=== PATIENT | female | born 1970 | race Caucasian/White ===

== ENCOUNTER → 2017-04-30 | Outpatient (CLI) | payer OTHER ==
[~2017-04-30] MED LIST: ACEBUTCAFT PO; ACEDIPPM; ALBU.083IS IH; ALBU3IS INH; ALBU8HFA2 INH; ALBU90OI; ALBU90OI INH; ALPR.5 PO; AMIT10 PO; AMIT25 PO; AMOX500 PO; ASPI325 PO; AZIT250 PO; Advair Hfa 230-12 GM INH; Amitriptyline150 MG; BACL10 PO; BENZ100A PO; BRINTELLIX20 MG PO; BUPR100; BUSP10 PO; BUTASPCAFT PO; CALMAGZIN PO; CEPH500 PO; CHLO10 PO; CHLO25A PO; CHLO50; CHOL10002 PO; CLOMIPRAMINE PO; CLON.2 PO; CLON1; CLON1 PO; CLON2 PO; CYCL10 PO; Capsaicin60 GM TOP; Cyclobenzaprine5 MG; DEPAKO; DESV50 PO; DIAZ10 PO; DIAZ2 PO; DIPH50 PO; DIVA250EC; DIVA500EC; DOXY100 PO; Desyrel150 MG PO; Duoneb 2.5-0.5 M3 ML INH; EPIN.3I IM; EPIPEN 2-P0.3 MG/0.3 IM; ESCI10 PO; Esgic Tablet1 EACH PO; FISH1000 PO; FLUC100 PO; FLUV50 PO; Flexeril5 MG PO; GABA300 PO; GABA600 PO; GUAPHELA PO; HYDACE25S PR; HYDACE5; HYDACE5 PO; HYDPAM25; HYDPAM50 PO; IBUP600 PO; IBUP800 PO; INSDET100 SC; INSULANPEN SC; KETO10 PO; LAMO25 PO; LATUDA40 MG PO; LATUDA80 MG PO; LEVSOD50 PO; LIDO700A20 TOP; LITH300C PO; LORA.5; LORA1 PO; LORA2 PO; LORAZEPAM; LOSA25 PO; LOSA50 PO; LOSARTAN; LOSARTAN POTASS25 MG PO; LOXA5; Lopressor 50 mg50 MG PO; MECL12.5 PO; METF500 PO; METF500C PO; METO10 PO; METO25 PO; METO25ER PO; METO50 PO; METO50ER PO; METPHE10 PO; METPHE20 PO; MONT10T PO; NAPR500 PO; NEBI10 PO; NEBI5 PO; NITR100CA PO; Naprosyn500 MG PO; OLAN10 PO; OLAN5 PO; OMEP20ER PO; OMEP40CA12 PO; ONDA4ODT MM; ONDA4ODT PO; OXYACE5T PO; Omeprazole20 M1 PO; PENVK500 PO; POTCHL10ER; PRAM.5 PO; PRAMIPEXOLE D0.75 MG PO; PRAZ2 PO; PRAZ5 PO; PRED20 PO; PREG50 PO; PROC10 PO; PROCODE120 PO; PROM25 PO; Percocet 5-3251 EACH PO; Prednisone20 MG PO; QUET200 PO; QUET25 PO; QUET300; QUET300 PO; QUETIAPINE FUM200 M1; RANI150; REXULTI4 MG; RISP.5 PO; RIZATRIPTAN10 M1 PO; ROXICODONE5 MG PO; RXLORA1 PO; RXPENVK250 PO; RXPROACE PO; SERT100; SERT25; SERT50 PO; SIMV10 PO; SIMV5 PO; ST. JOHN'S WORT; SUCR1 PO; SUMA25; SUMA25 PO; SUMA6I SC; Seroquel200 MG PO; TOPI100 PO; TOPI50 PO; TRAM50 PO; TRAZ100; TRAZ50 PO; Toviaz8 MG PO; ZOLP10 PO; ZOLP12.5 PO; Zithromax250 MG PO; Zofran Odt4 MG PO; [UNRECOGNIZED DRUG - OTHER]; [UNRECOGNIZED DRUG - OTHER]
[2017-04-30 14:28] LABS: Influenza A Negative (NEGATIVE); Influenza B Negative (NEGATIVE)
== END ==
LOC: LAB SHORT 13:30
PROVIDERS: Nurse Practitioner Primary Care
DX: J06.9 Acute upper respiratory infection, unspecified (principal)
CPT/HCPCS: 87804

== ENCOUNTER → 2017-05-30 | Outpatient (CLI) | payer OTHER | END | disposition home or self-care (01) | LOC: LAB 10:50 | DX: R30.0 Dysuria (principal) | CPT/HCPCS: 87077; 87086; 87186 ==

== ENCOUNTER 2017-06-05 12:45 | Emergency (ER) | payer OTHER ==
[~2017-06-05] VITALS: Ht 160 cm; Wt 117.9 kg
[~2017-06-05 12:45] MED LIST changes: -Amitriptyline150 MG; -EPIPEN 2-P0.3 MG/0.3 IM; -Flexeril5 MG PO; -LIDO700A20 TOP; -ONDA4ODT MM; -QUETIAPINE FUM200 M1; -REXULTI4 MG
[2017-06-05] MEDS ORDERED: Cyclobenzaprine5 MG (13:10)
[2017-06-05] MEDS ORDERED: Amitriptyline150 MG (13:10)
[2017-06-05] MEDS ORDERED: REXULTI4 MG (13:10)
[2017-06-05] MEDS ORDERED: QUETIAPINE FUM200 M1 (13:10)
[2017-06-05 14:34] LABS: BASOPHILS ABSOLUTE AUTO 0.06 K/mm3 (0.00-0.23); BASOPHILS PERCENT AUTO 1 % (0-2); EOSINOPHILS ABSOLUTE AUTO 0.17 K/mm3 (0.00-0.68); EOSINOPHILS PERCENT AUTO 2 % (0-6); Hematocrit 36.6 % (33.0-51.0); Hemoglobin 11.4 g/dL (11.5-16.0); IMMATURE GRAN ABSOLUTE AUTO 0.02 K/mm3 (0.00-0.10); IMMATURE GRAN PERCENT AUTO 0 % (0-1); LYMPHOCYTES ABSOLUTE AUTO 1.94 K/mm3 (0.84-5.20); LYMPHOCYTES PERCENT AUTO 28 % (21-46); MONOCYTES PERCENT AUTO 4 % (4-13); Mean Corpuscular HGB 27.2 pg (26.0-34.0); Mean Corpuscular HGB Conc 31.1 g/dL (31.5-36.5); Mean Corpuscular Volume 87 fL (80-100); Mean Platelet Volume 11.5 fL (9.1-12.4); NEUTROPHILS ABSOLUTE AUTO 4.57 K/mm3 (1.96-9.15); NEUTROPHILS PERCENT AUTO 65 % (41-73); Platelet Count 120 K/mm3 (150-400); RDW Coefficient Variation 13.9 % (11.7-14.2); RDW Standard Deviation 44.6 fL (35.1-46.3); Red Blood Cell Count 4.19 M/mm3 (3.80-5.20); White Blood Cell Count 7.06 K/mm3 (4.00-11.30)
[2017-06-05 14:53] LABS: Alanine Aminotransfer (ALT/SGP 55 U/L (12-78); Albumin, Blood 3.3 g/dL (3.4-5.0); Albumin/Globulin Ratio 0.7 (0.8-1.8); Alk Phos 71 U/L (50-136); Anion Gap 10 mmol/L (6-16); Aspartate Aminotrans (AST/SGOT 33 U/L (12-37); Bilirubin, Total 0.1 mg/dL (0.1-1.0); Blood Urea Nitrogen 12 mg/dL (8-24); Bun/Creatinine Ratio 18.3 (12.0-20.0); CO2, Blood 21 mmol/L (21-32); Calcium, Blood 8.6 mg/dL (8.5-10.1); Chloride, Blood 111 mmol/L (98-108); Creatinine, Blood 0.66 mg/dL (0.40-1.00); Globulin, Blood 4.7 g/dL (2.2-4.0); Glomerular Filtration Rate >60 (60-); Glucose, Blood 138 mg/dL (70-99); Potassium, Blood 3.8 mmol/L (3.5-5.5); Sodium, Blood 142 mmol/L (136-145)
[2017-06-05] MEDS ORDERED: CYCL10 PO (15:59)
== END 2017-06-05 16:22 | disposition home or self-care (01) ==
LOC: ER 12:45
PROVIDERS: Nurse Practitioner Family
DX: M54.5 Low back pain (principal); Z88.2 Allergy status to sulfonamides; Z91.013 Allergy to seafood; Z91.041 Radiographic dye allergy status; Z79.899 Other long term (current) drug therapy; Z79.84 Long term (current) use of oral hypoglycemic drugs; I10 Essential (primary) hypertension; E03.9 Hypothyroidism, unspecified; E11.9 Type 2 diabetes mellitus without complications; F25.9 Schizoaffective disorder, unspecified; F31.9 Bipolar disorder, unspecified; J45.909 Unspecified asthma, uncomplicated; E78.5 Hyperlipidemia, unspecified; F43.10 Post-traumatic stress disorder, unspecified; G43.909 Migraine, unspecified, not intractable, without status migrainosus; Z87.891 Personal history of nicotine dependence
CPT/HCPCS: 36415; 70450; 80053; 81000; 85025; 96372; 99284; J1885

== ENCOUNTER 2017-06-20 22:15 | Emergency (ER) | payer OTHER ==
[~2017-06-20] VITALS: Ht 160 cm; Wt 117.9 kg
[~2017-06-20 22:15] MED LIST changes: +Amitriptyline150 MG; +QUETIAPINE FUM200 M1; +REXULTI4 MG
[2017-06-20] MEDS ORDERED: Prednisone20 MG PO (23:55)
[2017-06-20] MEDS ORDERED: NAPR500 PO (23:55)
[2017-06-20] MEDS ORDERED: LIDO700A20 TOP (23:55)
== END 2017-06-21 00:12 | disposition home or self-care (01) ==
LOC: ER 22:15
DX: M79.7 Fibromyalgia (principal); M25.512 Pain in left shoulder; I10 Essential (primary) hypertension; J45.909 Unspecified asthma, uncomplicated; G43.909 Migraine, unspecified, not intractable, without status migrainosus; E78.5 Hyperlipidemia, unspecified; F31.9 Bipolar disorder, unspecified; Z87.891 Personal history of nicotine dependence; Z88.2 Allergy status to sulfonamides; Z91.041 Radiographic dye allergy status; Z91.013 Allergy to seafood; Z79.84 Long term (current) use of oral hypoglycemic drugs; Z79.51 Long term (current) use of inhaled steroids; Z79.52 Long term (current) use of systemic steroids
CPT/HCPCS: 73030; 96372; 99284; J1885

== ENCOUNTER 2017-10-06 09:50 | Emergency (ER) | payer OTHER ==
[~2017-10-06] VITALS: Ht 160 cm; Wt 108.9 kg
[~2017-10-06 09:50] MED LIST changes: +LIDO700A20 TOP
[2017-10-06 10:31] LABS: Source, Urine Clean Catch
[2017-10-06 10:52] LABS: Bilirubin, Urine Neg (Neg); Blood, Urine 5+ (Neg); Glucose Qualitative, Urine Neg (Neg); Ketones, Urine Neg (Neg); Leukocyte Esterase, Urine 1+ (Neg); Nitrite, Urine Neg (Neg); Protein, Urine 1+ (Neg); Specific Gravity, Urine 1.015 (1.003-1.022); Urobilinogen, Urine NORM (Normal)
[2017-10-06 11:14] LABS: Appearance, Urine Clear (Clear); Color, Urine Amber (P-Yellow)
[2017-10-06 11:18] LABS: Bacteria Mod /hpf; Red Blood Cells, Urine TNTC /hpf (0-2); Squamous Epithelial Cells Mod /hpf (Few)
[2017-10-06 11:35] LABS: BASOPHILS ABSOLUTE AUTO 0.04 K/mm3 (0.00-0.23); BASOPHILS PERCENT AUTO 1 % (0-2); EOSINOPHILS ABSOLUTE AUTO 0.14 K/mm3 (0.00-0.68); EOSINOPHILS PERCENT AUTO 2 % (0-6); Hematocrit 37.1 % (33.0-51.0); Hemoglobin 11.8 g/dL (11.5-16.0); IMMATURE GRAN ABSOLUTE AUTO 0.02 K/mm3 (0.00-0.10); IMMATURE GRAN PERCENT AUTO 0 % (0-1); LYMPHOCYTES ABSOLUTE AUTO 2.06 K/mm3 (0.84-5.20); LYMPHOCYTES PERCENT AUTO 35 % (21-46); MONOCYTES ABSOLUTE AUTO 0.25 K/mm3 (0.16-1.47); MONOCYTES PERCENT AUTO 4 % (4-13); Mean Corpuscular HGB 27.2 pg (26.0-34.0); Mean Corpuscular HGB Conc 31.8 g/dL (31.5-36.5); Mean Corpuscular Volume 86 fL (80-100); Mean Platelet Volume 12.2 fL (9.1-12.4); NEUTROPHILS ABSOLUTE AUTO 3.32 K/mm3 (1.96-9.15); NEUTROPHILS PERCENT AUTO 57 % (41-73); Platelet Count 126 K/mm3 (150-400); RDW Standard Deviation 43.7 fL (35.1-46.3); Red Blood Cell Count 4.34 M/mm3 (3.80-5.20); White Blood Cell Count 5.83 K/mm3 (4.00-11.30)
[2017-10-06] MEDS ORDERED: Flexeril5 MG PO (11:44)
[2017-10-06] MEDS ORDERED: ZOLP10 PO (11:45)
[2017-10-06 11:46] LABS: Alanine Aminotransfer (ALT/SGP 60 U/L (12-78); Albumin, Blood 3.6 g/dL (3.4-5.0); Albumin/Globulin Ratio 0.8 (0.8-1.8); Alk Phos 73 U/L (50-136); Anion Gap 7 mmol/L (6-16); Aspartate Aminotrans (AST/SGOT 44 U/L (12-37); Bilirubin, Total 0.3 mg/dL (0.1-1.0); Blood Urea Nitrogen 13 mg/dL (8-24); CO2, Blood 25 mmol/L (21-32); Calcium, Blood 8.4 mg/dL (8.5-10.1); Chloride, Blood 109 mmol/L (98-108); Creatinine, Blood 0.87 mg/dL (0.40-1.00); Globulin, Blood 4.3 g/dL (2.2-4.0); Glomerular Filtration Rate >60 (60-); Glucose, Blood 161 mg/dL (70-99); Sodium, Blood 141 mmol/L (136-145); Total Protein, Blood 7.9 g/dL (6.4-8.2)
[2017-10-06] MEDS ORDERED: ALPR.5 PO (11:46)
[2017-10-06] MEDS ORDERED: PRAZ5 PO (11:46)
[2017-10-06] MEDS ORDERED: EPIPEN 2-P0.3 MG/0.3 IM (11:47)
[2017-10-06] MEDS ORDERED: Percocet 5-3251 EACH PO (13:21)
[2017-10-06] MEDS ORDERED: ONDA4ODT MM (13:21)
== END 2017-10-06 14:28 | disposition home or self-care (01) ==
LOC: ER 09:50
PROVIDERS: Emergency Medicine; Psychiatry & Neurology Psychiatry
DX: N13.2 Hydronephrosis with renal and ureteral calculous obstruction (principal); F31.9 Bipolar disorder, unspecified; I10 Essential (primary) hypertension; Z91.041 Radiographic dye allergy status; Z88.2 Allergy status to sulfonamides; Z91.013 Allergy to seafood; Z79.899 Other long term (current) drug therapy; Z79.84 Long term (current) use of oral hypoglycemic drugs
CPT/HCPCS: 36415; 74176; 80053; 81001; 81025; 85025; 87086; 96361; 96374; 96375; 99284-25; J1885; J2001; J2405; J7030

== ENCOUNTER 2018-03-31 14:35 | Emergency (ER) | payer BC, OTHER ==
[~2018-03-31] VITALS: Ht 160 cm; Wt 117.9 kg
[~2018-03-31 14:35] MED LIST changes: +EPIPEN 2-P0.3 MG/0.3 IM; +Flexeril5 MG PO; +ONDA4ODT MM
[2018-03-31 15:33] LABS: BASOPHILS ABSOLUTE AUTO 0.02 K/mm3 (0.00-0.23); BASOPHILS PERCENT AUTO 0 % (0-2); EOSINOPHILS ABSOLUTE AUTO 0.09 K/mm3 (0.00-0.68); EOSINOPHILS PERCENT AUTO 2 % (0-6); Hematocrit 36.3 % (33.0-51.0); Hemoglobin 11.4 g/dL (11.5-16.0); IMMATURE GRAN ABSOLUTE AUTO 0.01 K/mm3 (0.00-0.10); IMMATURE GRAN PERCENT AUTO 0 % (0-1); LYMPHOCYTES ABSOLUTE AUTO 1.22 K/mm3 (0.84-5.20); LYMPHOCYTES PERCENT AUTO 24 % (21-46); MONOCYTES ABSOLUTE AUTO 0.22 K/mm3 (0.16-1.47); MONOCYTES PERCENT AUTO 4 % (4-13); Mean Corpuscular HGB 27.5 pg (26.0-34.0); Mean Corpuscular HGB Conc 31.4 g/dL (31.5-36.5); Mean Corpuscular Volume 88 fL (80-100); Mean Platelet Volume 12.2 fL (9.1-12.4); NEUTROPHILS ABSOLUTE AUTO 3.48 K/mm3 (1.96-9.15); NEUTROPHILS PERCENT AUTO 69 % (41-73); Platelet Count 93 K/mm3 (150-400); RDW Coefficient Variation 14.1 % (11.7-14.2); RDW Standard Deviation 45.3 fL (35.1-46.3); Red Blood Cell Count 4.15 M/mm3 (3.80-5.20); White Blood Cell Count 5.04 K/mm3 (4.00-11.30)
[2018-03-31 15:55] LABS: Alanine Aminotransfer (ALT/SGP 84 U/L (12-78); Albumin, Blood 3.6 g/dL (3.4-5.0); Albumin/Globulin Ratio 0.8 (0.8-1.8); Alk Phos 95 U/L (50-136); Anion Gap 8 mmol/L (6-16); Aspartate Aminotrans (AST/SGOT 71 U/L (12-37); Bilirubin, Total 0.3 mg/dL (0.1-1.0); Blood Urea Nitrogen 8 mg/dL (8-24); Bun/Creatinine Ratio 11.7 (12.0-20.0); CO2, Blood 24 mmol/L (21-32); Calcium, Blood 8.9 mg/dL (8.5-10.1); Chloride, Blood 102 mmol/L (98-108); Creatinine, Blood 0.68 mg/dL (0.40-1.00); Globulin, Blood 4.5 g/dL (2.2-4.0); Glomerular Filtration Rate >60 (60-); Glucose, Blood 443 mg/dL (70-99); Potassium, Blood 4.2 mmol/L (3.5-5.5); Sodium, Blood 134 mmol/L (136-145); Total Protein, Blood 8.1 g/dL (6.4-8.2)
[2018-03-31] MEDS ORDERED: DESV50 PO (16:07)
[2018-03-31] MEDS ORDERED: Amitriptyline150 MG PO (16:07)
[2018-03-31] MEDS ORDERED: CHLO100 PO (16:07)
== END 2018-03-31 19:41 | disposition home or self-care (01) ==
LOC: ER 14:35
PROVIDERS: Emergency Medicine
DX: E11.65 Type 2 diabetes mellitus with hyperglycemia (principal); F31.9 Bipolar disorder, unspecified; I10 Essential (primary) hypertension; J45.909 Unspecified asthma, uncomplicated; F43.10 Post-traumatic stress disorder, unspecified; G43.909 Migraine, unspecified, not intractable, without status migrainosus; E78.5 Hyperlipidemia, unspecified; Z79.899 Other long term (current) drug therapy
CPT/HCPCS: 36415; 80053; 82947; 83036; 85025; 93005; 93010; 96360; 96361; 99285-25; J1815; J7030

== ENCOUNTER 2018-04-23 11:24 | Emergency (ER) | payer OTHER ==
[~2018-04-23] VITALS: Ht 160 cm; Wt 122.5 kg
[~2018-04-23 11:24] MED LIST changes: +Amitriptyline150 MG PO; +CHLO100 PO
[2018-04-23 12:40] LABS: BASOPHILS ABSOLUTE AUTO 0.04 K/mm3 (0.00-0.23); BASOPHILS PERCENT AUTO 1 % (0-2); EOSINOPHILS ABSOLUTE AUTO 0.09 K/mm3 (0.00-0.68); EOSINOPHILS PERCENT AUTO 2 % (0-6); Hemoglobin 11.8 g/dL (11.5-16.0); IMMATURE GRAN ABSOLUTE AUTO 0.01 K/mm3 (0.00-0.10); IMMATURE GRAN PERCENT AUTO 0 % (0-1); LYMPHOCYTES ABSOLUTE AUTO 1.38 K/mm3 (0.84-5.20); LYMPHOCYTES PERCENT AUTO 26 % (21-46); MONOCYTES ABSOLUTE AUTO 0.29 K/mm3 (0.16-1.47); MONOCYTES PERCENT AUTO 6 % (4-13); Mean Corpuscular HGB 27.7 pg (26.0-34.0); Mean Corpuscular HGB Conc 31.9 g/dL (31.5-36.5); Mean Corpuscular Volume 87 fL (80-100); Mean Platelet Volume 12.7 fL (9.1-12.4); NEUTROPHILS ABSOLUTE AUTO 3.47 K/mm3 (1.96-9.15); NEUTROPHILS PERCENT AUTO 66 % (41-73); Platelet Count 109 K/mm3 (150-400); RDW Standard Deviation 44.7 fL (35.1-46.3); Red Blood Cell Count 4.26 M/mm3 (3.80-5.20); White Blood Cell Count 5.28 K/mm3 (4.00-11.30)
[2018-04-23 12:50] LABS: Alanine Aminotransfer (ALT/SGP 81 U/L (12-78); Albumin, Blood 3.7 g/dL (3.4-5.0); Albumin/Globulin Ratio 0.8 (0.8-1.8); Alk Phos 90 U/L (50-136); Anion Gap 8 mmol/L (6-16); Aspartate Aminotrans (AST/SGOT 76 U/L (12-37); Bilirubin, Total 0.3 mg/dL (0.1-1.0); Blood Urea Nitrogen 12 mg/dL (8-24); Bun/Creatinine Ratio 21.4 (12.0-20.0); CO2, Blood 26 mmol/L (21-32); Calcium, Blood 8.5 mg/dL (8.5-10.1); Chloride, Blood 101 mmol/L (98-108); Creatinine, Blood 0.56 mg/dL (0.40-1.00); Globulin, Blood 4.6 g/dL (2.2-4.0); Glomerular Filtration Rate >60 (60-); Glucose, Blood 325 mg/dL (70-99); Potassium, Blood 4.4 mmol/L (3.5-5.5); Sodium, Blood 135 mmol/L (136-145); Total Protein, Blood 8.3 g/dL (6.4-8.2)
[2018-04-23 13:24] LABS: Source, Urine Catheter
[2018-04-23 13:43] LABS: Bilirubin, Urine Neg (Neg); Blood, Urine Neg (Neg); Glucose Qualitative, Urine 4+ (Neg); Ketones, Urine 1+ (Neg); Leukocyte Esterase, Urine Neg (Neg); Nitrite, Urine Neg (Neg); Protein, Urine 1+ (Neg); Specific Gravity, Urine 1.015 (1.003-1.022); Urobilinogen, Urine NORM (Normal)
[2018-04-23 14:03] LABS: Appearance, Urine Clear (Clear); Color, Urine Yellow (P-Yellow)
[2018-04-23] MEDS ORDERED: BASAGLAR K100 UNIT/1 SC (14:13)
== END 2018-04-23 16:30 | disposition home or self-care (01) ==
LOC: ER 11:24
PROVIDERS: Physician Assistant
DX: R20.2 Paresthesia of skin (principal); R51 Headache; R42 Dizziness and giddiness; R73.9 Hyperglycemia, unspecified; Z91.041 Radiographic dye allergy status; Z88.2 Allergy status to sulfonamides; Z91.013 Allergy to seafood; Z79.899 Other long term (current) drug therapy; Z79.84 Long term (current) use of oral hypoglycemic drugs; F25.9 Schizoaffective disorder, unspecified; I10 Essential (primary) hypertension; J45.909 Unspecified asthma, uncomplicated; F43.10 Post-traumatic stress disorder, unspecified; E78.5 Hyperlipidemia, unspecified; Z87.891 Personal history of nicotine dependence
CPT/HCPCS: 36415; 70450; 80053; 82947; 85025; 96361; 96374; 96375; 99284-25; J1885; J2550; J7030

== ENCOUNTER 2018-07-25 19:06 | Emergency (ER) | payer OTHER ==
[~2018-07-25] VITALS: Ht 160 cm; Wt 120.2 kg
[~2018-07-25 19:06] MED LIST changes: +BASAGLAR K100 UNIT/1 SC
[2018-07-25 20:06] LABS: BASOPHILS ABSOLUTE AUTO 0.04 K/mm3 (0.00-0.23); BASOPHILS PERCENT AUTO 1 % (0-2); EOSINOPHILS ABSOLUTE AUTO 0.15 K/mm3 (0.00-0.68); EOSINOPHILS PERCENT AUTO 2 % (0-6); Hemoglobin 10.8 g/dL (11.5-16.0); IMMATURE GRAN ABSOLUTE AUTO 0.01 K/mm3 (0.00-0.10); IMMATURE GRAN PERCENT AUTO 0 % (0-1); LYMPHOCYTES ABSOLUTE AUTO 1.66 K/mm3 (0.84-5.20); LYMPHOCYTES PERCENT AUTO 24 % (21-46); MONOCYTES ABSOLUTE AUTO 0.35 K/mm3 (0.16-1.47); MONOCYTES PERCENT AUTO 5 % (4-13); Mean Corpuscular HGB 27.2 pg (26.0-34.0); Mean Corpuscular HGB Conc 30.9 g/dL (31.5-36.5); Mean Corpuscular Volume 88 fL (80-100); Mean Platelet Volume 11.6 fL (9.1-12.4); NEUTROPHILS ABSOLUTE AUTO 4.64 K/mm3 (1.96-9.15); NEUTROPHILS PERCENT AUTO 68 % (41-73); Platelet Count 135 K/mm3 (150-400); RDW Coefficient Variation 14.4 % (11.7-14.2); RDW Standard Deviation 46.5 fL (35.1-46.3); Red Blood Cell Count 3.97 M/mm3 (3.80-5.20); White Blood Cell Count 6.85 K/mm3 (4.00-11.30)
[2018-07-25 20:12] LABS: Source, Urine Clean Catch
[2018-07-25 20:21] LABS: Alanine Aminotransfer (ALT/SGP 79 U/L (12-78); Albumin, Blood 3.4 g/dL (3.4-5.0); Albumin/Globulin Ratio 0.8 (0.8-1.8); Alk Phos 77 U/L (50-136); Anion Gap 9 mmol/L (6-16); Aspartate Aminotrans (AST/SGOT 68 U/L (12-37); Bilirubin, Total 0.3 mg/dL (0.1-1.0); Blood Urea Nitrogen 10 mg/dL (8-24); Bun/Creatinine Ratio 15.2 (12.0-20.0); CO2, Blood 24 mmol/L (21-32); Calcium, Blood 8.9 mg/dL (8.5-10.1); Chloride, Blood 109 mmol/L (98-108); Creatinine, Blood 0.66 mg/dL (0.40-1.00); Globulin, Blood 4.4 g/dL (2.2-4.0); Glomerular Filtration Rate >60 (60-); Glucose, Blood 184 mg/dL (70-99); Magnesium, Blood 1.7 mg/dL (1.6-2.4); Potassium, Blood 3.5 mmol/L (3.5-5.5); Sodium, Blood 142 mmol/L (136-145); Total Protein, Blood 7.8 g/dL (6.4-8.2)
[2018-07-25 20:23] LABS: Bilirubin, Urine Neg (Neg); Blood, Urine 1+ (Neg); Glucose Qualitative, Urine Neg (Neg); Ketones, Urine Neg (Neg); Leukocyte Esterase, Urine 1+ (Neg); Nitrite, Urine Neg (Neg); Protein, Urine 1+ (Neg); Specific Gravity, Urine 1.025 (1.003-1.022); Urobilinogen, Urine NORM (Normal)
[2018-07-25 20:30] LABS: Appearance, Urine Clear (Clear); Color, Urine Yellow (P-Yellow)
[2018-07-25 20:31] LABS: Red Blood Cells, Urine 0-2 /hpf (0-2)
[2018-07-25 20:32] LABS: Bacteria Few /hpf; Squamous Epithelial Cells Few /hpf (Few)
[2018-07-25] MEDS ORDERED: CEPH500 PO (20:38)
== END 2018-07-25 20:55 | disposition home or self-care (01) ==
LOC: ER 19:06
PROVIDERS: Emergency Medicine
DX: N39.0 Urinary tract infection, site not specified (principal); R04.2 Hemoptysis; R74.0 Nonspecific elevation of levels of transaminase and lactic acid dehydrogenase [LDH]; F31.9 Bipolar disorder, unspecified; I10 Essential (primary) hypertension; J45.909 Unspecified asthma, uncomplicated; F43.10 Post-traumatic stress disorder, unspecified; E78.5 Hyperlipidemia, unspecified; G43.909 Migraine, unspecified, not intractable, without status migrainosus; F17.290 Nicotine dependence, other tobacco product, uncomplicated; Z79.899 Other long term (current) drug therapy; Z79.4 Long term (current) use of insulin
CPT/HCPCS: 36415; 71046; 80053; 81001; 83735; 85025; 87077; 87086; 93005; 93010; 96360; 99284-25; J7030

== ENCOUNTER → 2019-04-14 | Outpatient (CLI) | payer OTHER ==
[2019-04-16 15:07] LABS: HPV 16 Negative (Negative); HPV 18 Negative (Negative); HPV OTHER HR TYPES Negative (Negative)
== END ==
LOC: LAB 18:42 → LAB SHORT 18:42
PROVIDERS: Registered Nurse Community Health
DX: Z12.4 Encounter for screening for malignant neoplasm of cervix (principal)
CPT/HCPCS: 87624; G0123

== ENCOUNTER 2019-12-27 21:13 | Emergency (ER) | payer OTHER ==
[~2019-12-27] VITALS: Ht 160 cm; Wt 116.3 kg
[~2019-12-27 21:13] MED LIST changes: +BUPROPION XL150 M1 PO; +Bentyl20 MG; +DIAZEPAM10 MG PO; +EUTHYROX75 MC1 PO; +Lithium Carbon450 MG PO; +Macrobid 100 M100 MG PO; +Mirapex0.75 MG PO
[2019-12-27 22:31] LABS: BASOPHILS ABSOLUTE AUTO 0.01 K/mm3 (0.00-0.23); BASOPHILS PERCENT AUTO 0 % (0-2); EOSINOPHILS PERCENT AUTO 0 % (0-6); Hematocrit 37.9 % (33.0-51.0); Hemoglobin 11.7 g/dL (11.5-16.0); IMMATURE GRAN ABSOLUTE AUTO 0.02 K/mm3 (0.00-0.10); IMMATURE GRAN PERCENT AUTO 0 % (0-1); LYMPHOCYTES ABSOLUTE AUTO 2.47 K/mm3 (0.84-5.20); LYMPHOCYTES PERCENT AUTO 29 % (21-46); MONOCYTES ABSOLUTE AUTO 0.32 K/mm3 (0.16-1.47); MONOCYTES PERCENT AUTO 4 % (4-13); Mean Corpuscular HGB 28.4 pg (26.0-34.0); Mean Corpuscular HGB Conc 30.9 g/dL (31.5-36.5); Mean Corpuscular Volume 92 fL (80-100); Mean Platelet Volume 11.6 fL (9.1-12.4); NEUTROPHILS PERCENT AUTO 67 % (41-73); Platelet Count 157 K/mm3 (150-400); RDW Coefficient Variation 14.4 % (11.7-14.2); RDW Standard Deviation 48.7 fL (35.1-46.3); Red Blood Cell Count 4.12 M/mm3 (3.80-5.20); White Blood Cell Count 8.52 K/mm3 (4.00-11.30)
[2019-12-27 22:52] LABS: Alanine Aminotransfer (ALT/SGP 29 U/L (12-78); Albumin, Blood 3.7 g/dL (3.4-5.0); Albumin/Globulin Ratio 0.8 (0.8-1.8); Alk Phos 70 U/L (50-136); Anion Gap 6 mmol/L (6-16); Aspartate Aminotrans (AST/SGOT 23 U/L (12-37); Bilirubin, Total 0.4 mg/dL (0.1-1.0); Blood Urea Nitrogen 9 mg/dL (8-24); Bun/Creatinine Ratio 11.8 (12.0-20.0); CO2, Blood 24 mmol/L (21-32); Calcium, Blood 10.1 mg/dL (8.5-10.1); Chloride, Blood 114 mmol/L (98-108); Creatinine, Blood 0.76 mg/dL (0.40-1.00); Globulin, Blood 4.4 g/dL (2.2-4.0); Glomerular Filtration Rate >60 (60-); Glucose, Blood 102 mg/dL (70-99); Potassium, Blood 3.7 mmol/L (3.5-5.5); Sodium, Blood 144 mmol/L (136-145); Total Protein, Blood 8.1 g/dL (6.4-8.2); Troponin I <0.015 ng/mL (0.000-0.040)
[2019-12-27] MEDS ORDERED: ONDA4ODT MM (23:00)
[2020-01-01] MEDS ORDERED: GABA600 PO (10:49)
[2020-01-01] MEDS ORDERED: OMEP20ER PO (10:49)
[2020-01-01] MEDS ORDERED: ALBU8HFA2 INH (10:49)
[2020-01-01] MEDS ORDERED: CYCLOBENZAPRINE5 MG PO (11:26)
[2020-01-01] MEDS ORDERED: MINIPRESS5 MG PO (11:26)
[2020-01-01] MEDS ORDERED: TOPI50 PO (11:27)
[2020-01-01] MEDS ORDERED: ALPR.5 PO (11:27)
[2020-01-01] MEDS ORDERED: ESGIC 50-325-41 EACH PO (11:27)
[2020-01-01] MEDS ORDERED: SUMA6I SC (11:28)
[2020-01-01] MEDS ORDERED: ZOLP10 PO (11:28)
[2020-01-01] MEDS ORDERED: METF500 PO (11:29)
[2020-01-01] MEDS ORDERED: BASAGLAR K100 UNIT/5 SQ (11:29)
[2020-01-01] MEDS ORDERED: EUTHYROX75 MC1 PO (11:30)
[2020-01-01] MEDS ORDERED: BUPR150ER PO (11:30)
[2020-01-01] MEDS ORDERED: Lithium Carbon450 MG PO (11:30)
[2020-01-01] MEDS ORDERED: Bentyl20 MG PO (11:30)
[2020-01-01] MEDS ORDERED: Mirapex0.75 MG PO (11:31)
[2020-01-01] MEDS ORDERED: CHLO100 PO (11:31)
[2020-01-01] MEDS ORDERED: DESV50 PO (11:32)
[2020-01-01] MEDS ORDERED: DIAZ5 PO (11:32)
[2020-01-01] MEDS ORDERED: METO5A PO (11:32)
== END 2019-12-27 23:21 | disposition home or self-care (01) ==
LOC: ER 21:13
PROVIDERS: Physician Assistant
DX: R10.13 Epigastric pain (principal); G89.29 Other chronic pain; I48.91 Unspecified atrial fibrillation; F25.9 Schizoaffective disorder, unspecified; F31.9 Bipolar disorder, unspecified; I10 Essential (primary) hypertension; E78.5 Hyperlipidemia, unspecified; Z87.891 Personal history of nicotine dependence; Z88.2 Allergy status to sulfonamides; Z91.013 Allergy to seafood; Z79.899 Other long term (current) drug therapy; Z79.4 Long term (current) use of insulin
CPT/HCPCS: 36415; 74018; 80053; 83690; 84484; 85025; 99284-25

== ENCOUNTER 2020-01-09 13:05 | Inpatient (IN) | payer OTHER ==
[~2020-01-09] VITALS: Ht 165.1 cm; Wt 113.6 kg
[~2020-01-09 13:05] MED LIST changes: +BUPR150ER PO; +Bentyl20 MG PO; +CYCLOBENZAPRINE5 MG PO; +DIAZ5 PO; +ESGIC 50-325-41 EACH PO; +EUTHYROX100 MC1 PO; +METO5A PO; +MINIPRESS5 MG PO
[2020-01-09 13:52] LABS: BASOPHILS PERCENT AUTO 0 % (0-2); EOSINOPHILS PERCENT AUTO 0 % (0-6); Hematocrit 35.9 % (33.0-51.0); IMMATURE GRAN ABSOLUTE AUTO 0.01 K/mm3 (0.00-0.10); IMMATURE GRAN PERCENT AUTO 0 % (0-1); LYMPHOCYTES ABSOLUTE AUTO 1.43 K/mm3 (0.84-5.20); LYMPHOCYTES PERCENT AUTO 16 % (21-46); MONOCYTES ABSOLUTE AUTO 0.53 K/mm3 (0.16-1.47); MONOCYTES PERCENT AUTO 6 % (4-13); Mean Corpuscular HGB 28.7 pg (26.0-34.0); Mean Corpuscular HGB Conc 30.6 g/dL (31.5-36.5); Mean Corpuscular Volume 94 fL (80-100); Mean Platelet Volume 12.2 fL (9.1-12.4); NEUTROPHILS PERCENT AUTO 78 % (41-73); Platelet Count 143 K/mm3 (150-400); RDW Coefficient Variation 14.1 % (11.7-14.2); RDW Standard Deviation 48.7 fL (35.1-46.3); Red Blood Cell Count 3.83 M/mm3 (3.80-5.20); White Blood Cell Count 8.97 K/mm3 (4.00-11.30)
[2020-01-09 14:01] LABS: Source, Urine Catheter
[2020-01-09 14:06] LABS: Alanine Aminotransfer (ALT/SGP 32 U/L (12-78); Albumin, Blood 3.7 g/dL (3.4-5.0); Albumin/Globulin Ratio 0.9 (0.8-1.8); Alk Phos 80 U/L (50-136); Anion Gap 7 mmol/L (6-16); Aspartate Aminotrans (AST/SGOT 42 U/L (12-37); Bilirubin, Total 0.5 mg/dL (0.1-1.0); Blood Urea Nitrogen 17 mg/dL (8-24); Bun/Creatinine Ratio 13.1 (12.0-20.0); CO2, Blood 26 mmol/L (21-32); Chloride, Blood 112 mmol/L (98-108); Ethanol (Alcohol), Blood, Med <3 mg/dL; Globulin, Blood 4.3 g/dL (2.2-4.0); Glomerular Filtration Rate 47 (60-); Glucose, Blood 95 mg/dL (70-99); Potassium, Blood 3.6 mmol/L (3.5-5.5); Sodium, Blood 145 mmol/L (136-145)
[2020-01-09 14:07] LABS: Blood, Urine 2+ (Neg); Glucose Qualitative, Urine Neg (Neg); Ketones, Urine 1+ (Neg); Leukocyte Esterase, Urine 3+ (Neg); Nitrite, Urine Pos (Neg); Protein, Urine 3+ (Neg); Specific Gravity, Urine 1.025 (1.003-1.022); Urobilinogen, Urine 1+ (Normal)
[2020-01-09 14:15] LABS: Appearance, Urine Turbid (Clear); Bilirubin, Urine 3+ (Neg); Color, Urine Amber (P-Yellow)
[2020-01-09 14:18] LABS: Bacteria Many /hpf; Squamous Epithelial Cells Rare /hpf (Few); White Blood Cells, Urine TNTC /hpf (0-5)
[2020-01-09 14:20] LABS: U Amphetamine Screen Not Detected; U Barbituate Screen DETECTED; U Benzodiazapine Screen DETECTED; U Buprenorphine Screen Not Detected; U Cannabinoids Screen Not Detected; U Cocaine Screen Not Detected; U Methadone Screen Not Detected; U Methamphetamine Screen Not Detected; U Opiates Screen Not Detected; U Oxycodone Screen Not Detected; U Phencyclidine Screen Not Detected; U Propoxyphene Screen Not Detected
[2020-01-09 16:58] LABS: Lithium 1.87 mmol/L (0.60-1.20)
[2020-01-09] MEDS ORDERED: METF500C PO (17:58)
--- NOTE | 2020-01-09 21:31 | NUR ---
PATIENT IS A NEW ADMIT FROM THE ED. TWO ASSIST TRANSFER FROM [facility] TO BED. UNSTEADY GAIT AT THIS TIME. AXOX 3, FORGETFUL AT TIMES. NS INFUSING AT 100 mL/HR FROM ED. REPORTS CHRONIC BACK PAIN. ON ROOM AIR. TELEMETRY PLACED AND TECH REPORTS NSR 92. DENIES SOB AND N/V. PATIENT ORIENTED TO ROOM AND CALL LIGHT SYSTEM. ABLE TO HAVE BM AFTER ADMIT. BED ALARM ACTIVATED TRYING TO GET UP ON OWN. PATIENT BACK IN BED AND CALL LIGHT IN REACH. TV ON PER PATIENT REQUEST.
--- NOTE | 2020-01-09 23:14 | NUR ---
RESTING IN BED. FLU VACCINE ADMINISTERED. NS INFUSING AT 100 mL/HR, ONE OF TWO BAGS. VOIDING 900 mL SO FAR, USING BSC ONE ASSIST.
--- NOTE | 2020-01-10 04:15 | NUR ---
SHIFT SUMMARY PATIENT HAD NO ACUTE CHANGES OBSERVED. AXOX 3 AND FORGET AT TIMES TO USE CALL LIGHT. ONE ASSIST TO BSC WITH UNSTEADY GAIT. VOIDING T/O SHIFT AND BM. PIV REMAINS INTACT. NS INFUSING AT 100 mL/HR 2 OF 2 BAGS. DENIES SOB AND N/V. VSS/AFEBRILE. PATIENT HAD MINIMAL SLEEP AND REPORTS SHE IS USUALLY UP AT NIGHT WITH HER PETS. REPORTS CHRONIC BACK PAIN WITH MOVEMENT. NPO. CALL LIGHT IN REACH. BED IN LOWEST POSITION AND BED ALARM ACTIVATED. WILL CONTINUE TO MONITOR UNTIL DAY SHIFT NURSE ASSUMES CARE.
[2020-01-10 05:22] LABS: BASOPHILS PERCENT AUTO 0 % (0-2); EOSINOPHILS PERCENT AUTO 0 % (0-6); Hematocrit 32.6 % (33.0-51.0); Hemoglobin 9.8 g/dL (11.5-16.0); IMMATURE GRAN ABSOLUTE AUTO 0.02 K/mm3 (0.00-0.10); IMMATURE GRAN PERCENT AUTO 0 % (0-1); LYMPHOCYTES ABSOLUTE AUTO 2.29 K/mm3 (0.84-5.20); LYMPHOCYTES PERCENT AUTO 31 % (21-46); MONOCYTES PERCENT AUTO 7 % (4-13); Mean Corpuscular HGB 28.2 pg (26.0-34.0); Mean Corpuscular HGB Conc 30.1 g/dL (31.5-36.5); Mean Corpuscular Volume 94 fL (80-100); Mean Platelet Volume 12.1 fL (9.1-12.4); NEUTROPHILS ABSOLUTE AUTO 4.71 K/mm3 (1.96-9.15); NEUTROPHILS PERCENT AUTO 63 % (41-73); Platelet Count 127 K/mm3 (150-400); RDW Coefficient Variation 14.2 % (11.7-14.2); RDW Standard Deviation 49.1 fL (35.1-46.3); Red Blood Cell Count 3.48 M/mm3 (3.80-5.20); White Blood Cell Count 7.52 K/mm3 (4.00-11.30)
[2020-01-10 05:47] LABS: Anion Gap 7 mmol/L (6-16); Blood Urea Nitrogen 10 mg/dL (8-24); Bun/Creatinine Ratio 11.9 (12.0-20.0); CO2, Blood 24 mmol/L (21-32); Calcium, Blood 9.2 mg/dL (8.5-10.1); Chloride, Blood 112 mmol/L (98-108); Creatinine, Blood 0.84 mg/dL (0.40-1.00); Glomerular Filtration Rate >60 (60-); Glucose, Blood 102 mg/dL (70-99); Magnesium, Blood 2.3 mg/dL (1.6-2.4); Potassium, Blood 3.1 mmol/L (3.5-5.5); Sodium, Blood 143 mmol/L (136-145)
[2020-01-10 05:58] LABS: Lithium 1.18 mmol/L (0.60-1.20)
--- NOTE | 2020-01-11 03:50 | NUR ---
SHIFT SUMMARY PATIENT HAD NO ACUTE CHANGES OBSERVED. SLEEPING BUT AROUSABLE AT SHIFT CHANGE. AXOX 3 AND FORGETFUL AT TIMES. SBA TO BSC WITH UNSTEADY GAIT. PIV REMAINS INTACT. LEARNING AND DEVELOPMENT ASSISTANT REPORTS NSR77. CBG 96. DENIES PAIN, SOB, AND N/V. SLEEPING THIS SHIFT VS WIDE AWAKE LAST NOC SHIFT. VSS/AFEBRILE. CALL LIGHT IN REACH. BED IN LOWEST POSITION AND ALARM ACTIVATED. WILL CONTINUE TO MONITOR UNTIL DAY SHIFT NURSE ASSUMES CARE.
[2020-01-11 05:05] LABS: BASOPHILS ABSOLUTE AUTO 0.01 K/mm3 (0.00-0.23); BASOPHILS PERCENT AUTO 0 % (0-2); EOSINOPHILS PERCENT AUTO 0 % (0-6); Hematocrit 33.9 % (33.0-51.0); Hemoglobin 10.4 g/dL (11.5-16.0); IMMATURE GRAN ABSOLUTE AUTO 0.02 K/mm3 (0.00-0.10); IMMATURE GRAN PERCENT AUTO 0 % (0-1); LYMPHOCYTES ABSOLUTE AUTO 2.64 K/mm3 (0.84-5.20); LYMPHOCYTES PERCENT AUTO 36 % (21-46); MONOCYTES ABSOLUTE AUTO 0.38 K/mm3 (0.16-1.47); MONOCYTES PERCENT AUTO 5 % (4-13); Mean Corpuscular HGB 28.7 pg (26.0-34.0); Mean Corpuscular HGB Conc 30.7 g/dL (31.5-36.5); Mean Corpuscular Volume 94 fL (80-100); Mean Platelet Volume 11.8 fL (9.1-12.4); NEUTROPHILS ABSOLUTE AUTO 4.33 K/mm3 (1.96-9.15); NEUTROPHILS PERCENT AUTO 59 % (41-73); Platelet Count 148 K/mm3 (150-400); RDW Coefficient Variation 14.1 % (11.7-14.2); RDW Standard Deviation 48.5 fL (35.1-46.3); Red Blood Cell Count 3.62 M/mm3 (3.80-5.20); White Blood Cell Count 7.38 K/mm3 (4.00-11.30)
[2020-01-11 05:37] LABS: Anion Gap 9 mmol/L (6-16); Blood Urea Nitrogen 4 mg/dL (8-24); Bun/Creatinine Ratio 5.1 (12.0-20.0); CO2, Blood 21 mmol/L (21-32); Calcium, Blood 9.2 mg/dL (8.5-10.1); Chloride, Blood 114 mmol/L (98-108); Creatinine, Blood 0.79 mg/dL (0.40-1.00); Glomerular Filtration Rate >60 (60-); Glucose, Blood 144 mg/dL (70-99); Potassium, Blood 3.3 mmol/L (3.5-5.5); Sodium, Blood 144 mmol/L (136-145)
--- NOTE | 2020-01-11 16:15 | NUR ---
PT IS A/OX3, COOPERATIVE, SLOW TO RESPOND VERBALY, THE PT REPORTED JUST BEFORE LUNCH TODAY THAT SHE FELT SHE WAS HAVING TROUBLE GETTINGS WORDS OUT, FELT HER SPEECH WAS GARBELED, THE PT DID APPEAR MORE SLEEPY AT THIS TIME COMPARED TO THIS AM, THE PTS BS WAS CHECKED AND WAS AT 75, PT WAS ENCOURAGED TO EAT LUNCH AND FELT BETTER SHORTLY AFTER, PT SEEMED TO BE MORE AWAKE THE DAY HAS PROGRESSED, PT APPEARS TO BE BREATHING EASILY ON RA, PT DENIES ANY PAIN, THE PT IS UP IND TO THE BATHROOM AT THIS TIME, CALL LIGHT IN REACH, WILL CONTINUE TO MONITOR FOR CHANGES
[2020-01-12 04:35] LABS: Hematocrit 33.6 % (33.0-51.0); Hemoglobin 10.1 g/dL (11.5-16.0); Mean Corpuscular HGB 28.1 pg (26.0-34.0); Mean Corpuscular HGB Conc 30.1 g/dL (31.5-36.5); Mean Corpuscular Volume 94 fL (80-100); Mean Platelet Volume 11.9 fL (9.1-12.4); Platelet Count 159 K/mm3 (150-400); RDW Standard Deviation 48.4 fL (35.1-46.3); Red Blood Cell Count 3.59 M/mm3 (3.80-5.20); White Blood Cell Count 6.34 K/mm3 (4.00-11.30)
[2020-01-12 05:00] LABS: Anion Gap 8 mmol/L (6-16); Blood Urea Nitrogen 3 mg/dL (8-24); Bun/Creatinine Ratio 3.9 (12.0-20.0); CO2, Blood 24 mmol/L (21-32); Calcium, Blood 9.3 mg/dL (8.5-10.1); Chloride, Blood 114 mmol/L (98-108); Creatinine, Blood 0.77 mg/dL (0.40-1.00); Glomerular Filtration Rate >60 (60-); Glucose, Blood 100 mg/dL (70-99); Potassium, Blood 3.3 mmol/L (3.5-5.5); Sodium, Blood 146 mmol/L (136-145)
--- NOTE | 2020-01-12 05:22 | NUR ---
49 year old Female appears older than actual age continues to be indep in room. Poor appetite, bowels move this AM. PT declined ADA diet & alternatives. She says she had GI workup for ABD pain & has been unable to connect with DR Hall to discuss results. She does take multiple meds for bipolar RLS fibromyalgia & schitzoaffective disorder. She asks for ambien at explained due to fact she was found down dazed & confused she was no recieving RX. PT on phone alot appears to have good support system. UA C & S pending
[2020-01-12] MEDS ORDERED: CEPH500 PO (12:57)
--- NOTE | 2020-01-12 14:41 | NUR ---
PT DISCHARGED THE PT VERBALIZED UNDERSTANDING OF THE DC INSTRUCTIONS, THE PTS PRESCRIPTIONS WERE [place]XED TO [place] PER HER REQUEST, THE PT WAS REMINDED TO FOLLOW UP AT [facility] FOR A POST HOSPITAL REVIEW AND TO ESTABLISH A PCP, PT WAS TRANSFERED VIA WHEELCHAIR ACCOMPANIED BY THE PRODUCTION CONTROL SPECIALIST TO MEET HER FAMILY AT THE FRONT, PT APPEARED TO BE BREATHING EASILY AT THE TIME OF DC
== END 2020-01-12 14:40 | disposition home health service (06) | DRG 917 ==
LOC: ER 13:05 → MEDS 18:16
PROVIDERS: Emergency Medicine; Hospitalist; Internal Medicine; Physician Assistant; ADMIT Internal Medicine
DX: T56.891A Toxic effect of other metals, accidental (unintentional), initial encounter (principal); G92 Toxic encephalopathy; N17.9 Acute kidney failure, unspecified; Z68.42 Body mass index [BMI] 45.0-49.9, adult; N39.0 Urinary tract infection, site not specified; F25.0 Schizoaffective disorder, bipolar type; E11.9 Type 2 diabetes mellitus without complications; E78.5 Hyperlipidemia, unspecified; K21.9 Gastro-esophageal reflux disease without esophagitis; I10 Essential (primary) hypertension; E03.9 Hypothyroidism, unspecified; E66.01 Morbid (severe) obesity due to excess calories; D69.6 Thrombocytopenia, unspecified; Z79.4 Long term (current) use of insulin; Z79.01 Long term (current) use of anticoagulants; M79.7 Fibromyalgia; E86.0 Dehydration
CPT/HCPCS: 36415; 70450; 71045; 80048; 80053; 80178; 81001; 82140; 82947; 83735; 84702; 85025; 85027; 87077; 87086; 87186; 93005; 93010; 96361; 96365; 96376; 97116; 97162; 97166; 97530; 99285-25; A9270; A9270-GY; G0008; G0378; G0480; J0696; J1650; J2405; J7030; Q2038

== ENCOUNTER → 2020-01-22 | Outpatient (CLI) | payer OTHER | END | disposition home or self-care (01) | LOC: LAB UCHC 15:01 → LAB SHORT 15:01 | DX: R30.0 Dysuria (principal) | CPT/HCPCS: 87077; 87086; 87186 ==

== ENCOUNTER 2020-05-18 16:20 | Observation (INO) | payer BC ==
[~2020-05-18] VITALS: Ht 160 cm; Wt 81.5 kg
[2020-05-18 17:04] LABS: Source, Urine Clean Catch
[2020-05-18 17:08] LABS: BASOPHILS PERCENT AUTO 0 % (0-2); EOSINOPHILS PERCENT AUTO 0 % (0-6); Hemoglobin 13.3 g/dL (11.5-16.0); IMMATURE GRAN ABSOLUTE AUTO 0.02 K/mm3 (0.00-0.10); IMMATURE GRAN PERCENT AUTO 0 % (0-1); LYMPHOCYTES ABSOLUTE AUTO 2.23 K/mm3 (0.84-5.20); LYMPHOCYTES PERCENT AUTO 28 % (21-46); MONOCYTES ABSOLUTE AUTO 0.25 K/mm3 (0.16-1.47); MONOCYTES PERCENT AUTO 3 % (4-13); Mean Corpuscular HGB 28.6 pg (26.0-34.0); Mean Corpuscular HGB Conc 32.4 g/dL (31.5-36.5); Mean Corpuscular Volume 88 fL (80-100); Mean Platelet Volume 11.9 fL (9.1-12.4); NEUTROPHILS ABSOLUTE AUTO 5.51 K/mm3 (1.96-9.15); NEUTROPHILS PERCENT AUTO 69 % (41-73); Platelet Count 147 K/mm3 (150-400); RDW Coefficient Variation 14.3 % (11.7-14.2); RDW Standard Deviation 46.1 fL (35.1-46.3); Red Blood Cell Count 4.65 M/mm3 (3.80-5.20); White Blood Cell Count 8.01 K/mm3 (4.00-11.30)
[2020-05-18 17:08] LABS: Appearance, Urine Clear (Clear); Bilirubin, Urine Neg (Neg); Blood, Urine Neg (Neg); Color, Urine Yellow (P-Yellow); Glucose Qualitative, Urine Neg (Neg); Ketones, Urine Neg (Neg); Leukocyte Esterase, Urine Neg (Neg); Nitrite, Urine Neg (Neg); Protein, Urine Neg (Neg); Urobilinogen, Urine NORM (Normal)
[2020-05-18 17:30] LABS: Alanine Aminotransfer (ALT/SGP 27 U/L (12-78); Albumin, Blood 4.2 g/dL (3.4-5.0); Alk Phos 84 U/L (50-136); Anion Gap 5 mmol/L (6-16); Aspartate Aminotrans (AST/SGOT 16 U/L (12-37); Bilirubin, Total 0.4 mg/dL (0.1-1.0); Blood Urea Nitrogen 14 mg/dL (8-24); Bun/Creatinine Ratio 16.1 (12.0-20.0); CO2, Blood 29 mmol/L (21-32); Calcium, Blood 9.4 mg/dL (8.5-10.1); Chloride, Blood 106 mmol/L (98-108); Creatinine, Blood 0.87 mg/dL (0.40-1.00); Globulin, Blood 4.2 g/dL (2.2-4.0); Glomerular Filtration Rate >60 (60-); Glucose, Blood 119 mg/dL (70-99); Sodium, Blood 140 mmol/L (136-145); Total Protein, Blood 8.4 g/dL (6.4-8.2)
[2020-05-18] MEDS ORDERED: PRAZ5 PO ×2 (18:37→21:29)
[2020-05-18] MEDS ORDERED: ALPRAZOLAM0.5 M1 PO (18:38)
[2020-05-18] MEDS ORDERED: DIAZEPAM10 MG PO (21:29)
[2020-05-18] MEDS ORDERED: CLOZ100 PO (21:30)
[2020-05-18] MEDS ORDERED: TRAZ150T57 PO (21:30)
[2020-05-18] MEDS ORDERED: LOSARTAN POTASS50 M1 PO (21:31)
[2020-05-19] MEDS ORDERED: MIRAPEX0.75 M1 PO (00:06)
[2020-05-19 05:48] LABS: BASOPHILS ABSOLUTE AUTO 0.01 K/mm3 (0.00-0.23); BASOPHILS PERCENT AUTO 0 % (0-2); EOSINOPHILS PERCENT AUTO 0 % (0-6); Hematocrit 36.5 % (33.0-51.0); Hemoglobin 11.5 g/dL (11.5-16.0); IMMATURE GRAN ABSOLUTE AUTO 0.02 K/mm3 (0.00-0.10); IMMATURE GRAN PERCENT AUTO 0 % (0-1); LYMPHOCYTES ABSOLUTE AUTO 2.92 K/mm3 (0.84-5.20); LYMPHOCYTES PERCENT AUTO 35 % (21-46); MONOCYTES ABSOLUTE AUTO 0.37 K/mm3 (0.16-1.47); MONOCYTES PERCENT AUTO 4 % (4-13); Mean Corpuscular HGB 27.9 pg (26.0-34.0); Mean Corpuscular HGB Conc 31.5 g/dL (31.5-36.5); Mean Corpuscular Volume 89 fL (80-100); Mean Platelet Volume 12.2 fL (9.1-12.4); NEUTROPHILS ABSOLUTE AUTO 5.03 K/mm3 (1.96-9.15); NEUTROPHILS PERCENT AUTO 60 % (41-73); Platelet Count 145 K/mm3 (150-400); RDW Coefficient Variation 14.1 % (11.7-14.2); RDW Standard Deviation 46.2 fL (35.1-46.3); Red Blood Cell Count 4.12 M/mm3 (3.80-5.20); White Blood Cell Count 8.35 K/mm3 (4.00-11.30)
--- NOTE | 2020-05-19 05:54 | NUR ---
INTERVENTIONAL RADIOLOGY TECH SUMMARY PT ADMITTED FROM ED AT 0025 THIS SHIFT. RECEIVED REPORT FROM GAVINO LINO. PT A&OX4, ABLE TO MAKE NEEDS KNOWN. PLEASANT AND COOPERATIVE TO CARE. PT MEDICATED FOR HEADACHED X1 PER EMAR. PT ALSO MEDICATED FOR NAUSEA X1 THIS SHIFT. NO C/O CP, HRR, TELE NSR 80 BPM. NO C/O SOB, RESP E/U IN RA. NO C/O N&T, PAIN OR ANY OTHER DISCOMFORT. PT SBA, DENIES DYSURIA. PT CALM AND RESTED IN BED T/O SHIFT. BED AT LOWEST POSITION. CALL LIGHT WITHIN REACH.
[2020-05-19 06:16] LABS: Alanine Aminotransfer (ALT/SGP 24 U/L (12-78); Albumin, Blood 3.2 g/dL (3.4-5.0); Albumin/Globulin Ratio 0.8 (0.8-1.8); Alk Phos 70 U/L (50-136); Anion Gap 7 mmol/L (6-16); Aspartate Aminotrans (AST/SGOT 13 U/L (12-37); Bilirubin, Total 0.5 mg/dL (0.1-1.0); Blood Urea Nitrogen 18 mg/dL (8-24); Bun/Creatinine Ratio 20.2 (12.0-20.0); CO2, Blood 29 mmol/L (21-32); Calcium, Blood 8.8 mg/dL (8.5-10.1); Chloride, Blood 108 mmol/L (98-108); Creatinine, Blood 0.89 mg/dL (0.40-1.00); Globulin, Blood 3.9 g/dL (2.2-4.0); Glomerular Filtration Rate >60 (60-); Glucose, Blood 97 mg/dL (70-99); Potassium, Blood 3.3 mmol/L (3.5-5.5); Sodium, Blood 144 mmol/L (136-145); Total Protein, Blood 7.1 g/dL (6.4-8.2)
[2020-05-19] MEDS ORDERED: DOCU100 PO (11:56)
--- NOTE | 2020-05-19 12:41 | NUR ---
DISCHARGE SUMMARY PT DISCHARGED TO HOME. PT LEFT ROOM VIA WHEELCHAIR AT THIS TIME WITH CRYPTOZOOLOGIST ESCORT. PT EDUCATED ON ALL DISCHARGE INSTRUCTIONS, ALL QUESTIONS ANSWERED. PT AGREES TO ATTEND TELEPHONE VISIT FOLLOW UP WITH PCP AND TO TAKE MEDICATIONS PRESCRIBED. IV DC'D AND BELONGINGS RETURNED.
[2020-05-24 05:10] LABS: CLOZAPINE, SERUM 564 ng/mL (350-650); NORCLOZAPINE, SERUM 338 ng/mL (Not Estab.); TOTAL(CLOZ+NORCLOZ) 902 ng/mL (.)
== END 2020-05-19 12:46 | disposition home or self-care (01) ==
LOC: ER 16:20 → MEDS 16:21
PROVIDERS: Internal Medicine; Physician Assistant; ADMIT Internal Medicine
DX: G92 Toxic encephalopathy (principal); F25.0 Schizoaffective disorder, bipolar type; F60.3 Borderline personality disorder; J45.909 Unspecified asthma, uncomplicated; I10 Essential (primary) hypertension; E11.9 Type 2 diabetes mellitus without complications; M79.7 Fibromyalgia; E78.5 Hyperlipidemia, unspecified; F98.8 Other specified behavioral and emotional disorders with onset usually occurring in childhood and adolescence; Z87.891 Personal history of nicotine dependence; Z79.4 Long term (current) use of insulin; Z88.2 Allergy status to sulfonamides; Z91.041 Radiographic dye allergy status; Z91.013 Allergy to seafood; F43.10 Post-traumatic stress disorder, unspecified
CPT/HCPCS: 36415; 70450; 80053; 81003; 81025; 82947; 84443; 85025; 93005; 93010; 96372; 96374; 99285-25; A9270; G0378; J1650; J2405; J7030

== ENCOUNTER 2020-05-26 20:35 | Emergency (ER) | payer BC ==
[~2020-05-26] VITALS: Ht 160 cm; Wt 99.8 kg
[~2020-05-26 20:35] MED LIST changes: +ALPRAZOLAM0.5 M1 PO; +CLOZ100 PO; +DOCU100 PO; +LOSARTAN POTASS50 M1 PO; +MIRAPEX0.75 M1 PO; +TRAZ150T57 PO
[2020-05-26 21:20] LABS: BASOPHILS PERCENT AUTO 0 % (0-2); EOSINOPHILS PERCENT AUTO 0 % (0-6); Hematocrit 38.8 % (33.0-51.0); Hemoglobin 12.5 g/dL (11.5-16.0); IMMATURE GRAN ABSOLUTE AUTO 0.03 K/mm3 (0.00-0.10); IMMATURE GRAN PERCENT AUTO 0 % (0-1); LYMPHOCYTES ABSOLUTE AUTO 2.76 K/mm3 (0.84-5.20); LYMPHOCYTES PERCENT AUTO 33 % (21-46); MONOCYTES ABSOLUTE AUTO 0.35 K/mm3 (0.16-1.47); MONOCYTES PERCENT AUTO 4 % (4-13); Mean Corpuscular HGB 28.5 pg (26.0-34.0); Mean Corpuscular HGB Conc 32.2 g/dL (31.5-36.5); Mean Corpuscular Volume 89 fL (80-100); Mean Platelet Volume 11.6 fL (9.1-12.4); NEUTROPHILS ABSOLUTE AUTO 5.34 K/mm3 (1.96-9.15); NEUTROPHILS PERCENT AUTO 63 % (41-73); Platelet Count 152 K/mm3 (150-400); RDW Coefficient Variation 14.1 % (11.7-14.2); RDW Standard Deviation 45.4 fL (35.1-46.3); Red Blood Cell Count 4.38 M/mm3 (3.80-5.20); White Blood Cell Count 8.48 K/mm3 (4.00-11.30)
[2020-05-26] MEDS ORDERED: Aspir 8181 MG PO (21:43)
[2020-05-26 21:44] LABS: Alanine Aminotransfer (ALT/SGP 37 U/L (12-78); Albumin, Blood 3.5 g/dL (3.4-5.0); Albumin/Globulin Ratio 0.9 (0.8-1.8); Alk Phos 88 U/L (50-136); Anion Gap 7 mmol/L (6-16); Aspartate Aminotrans (AST/SGOT 16 U/L (12-37); Bilirubin, Total 0.2 mg/dL (0.1-1.0); Blood Urea Nitrogen 13 mg/dL (8-24); Bun/Creatinine Ratio 17.1 (12.0-20.0); CO2, Blood 24 mmol/L (21-32); Calcium, Blood 8.9 mg/dL (8.5-10.1); Chloride, Blood 111 mmol/L (98-108); Creatinine, Blood 0.76 mg/dL (0.40-1.00); Globulin, Blood 4.1 g/dL (2.2-4.0); Glomerular Filtration Rate >60 (60-); Glucose, Blood 165 mg/dL (70-99); Potassium, Blood 3.9 mmol/L (3.5-5.5); Sodium, Blood 142 mmol/L (136-145); Total Protein, Blood 7.6 g/dL (6.4-8.2); Troponin I <0.015 ng/mL (0.000-0.040)
[2020-05-26] MEDS ORDERED: CEPH500 PO (23:53)
== END 2020-05-27 00:20 | disposition home or self-care (01) ==
LOC: ER 20:35
PROVIDERS: Physician Assistant
DX: J18.9 Pneumonia, unspecified organism (principal); I10 Essential (primary) hypertension; E78.5 Hyperlipidemia, unspecified; E11.9 Type 2 diabetes mellitus without complications; F17.290 Nicotine dependence, other tobacco product, uncomplicated; Z91.013 Allergy to seafood; Z79.899 Other long term (current) drug therapy; Z88.2 Allergy status to sulfonamides; Z91.041 Radiographic dye allergy status; Z79.82 Long term (current) use of aspirin; Z87.442 Personal history of urinary calculi
CPT/HCPCS: 36415; 71046; 80053; 84484; 85025; 93005; 93010; 94640; 96361; 96365; 99285-25; 99406; J0696; J7030

== ENCOUNTER 2020-06-01 10:41 | Emergency (ER) | payer BC ==
[~2020-06-01] VITALS: Ht 160 cm; Wt 104.3 kg
[~2020-06-01 10:41] MED LIST changes: +Aspir 8181 MG PO
[2020-06-01] MEDS ORDERED: DIAZ10 PO (11:12)
[2020-06-01 11:47] LABS: BASOPHILS ABSOLUTE AUTO 0.01 K/mm3 (0.00-0.23); BASOPHILS PERCENT AUTO 0 % (0-2); EOSINOPHILS ABSOLUTE AUTO 0.01 K/mm3 (0.00-0.68); EOSINOPHILS PERCENT AUTO 0 % (0-6); Hematocrit 39.9 % (33.0-51.0); Hemoglobin 13.1 g/dL (11.5-16.0); IMMATURE GRAN ABSOLUTE AUTO 0.03 K/mm3 (0.00-0.10); IMMATURE GRAN PERCENT AUTO 0 % (0-1); LYMPHOCYTES ABSOLUTE AUTO 1.57 K/mm3 (0.84-5.20); LYMPHOCYTES PERCENT AUTO 18 % (21-46); MONOCYTES ABSOLUTE AUTO 0.31 K/mm3 (0.16-1.47); MONOCYTES PERCENT AUTO 4 % (4-13); Mean Corpuscular HGB 28.9 pg (26.0-34.0); Mean Corpuscular HGB Conc 32.8 g/dL (31.5-36.5); Mean Corpuscular Volume 88 fL (80-100); Mean Platelet Volume 13.1 fL (9.1-12.4); NEUTROPHILS ABSOLUTE AUTO 6.76 K/mm3 (1.96-9.15); NEUTROPHILS PERCENT AUTO 78 % (41-73); NRBC ABSOLUTE 0.04 K/mm3 (0.00-0.02); NRBC Auto 0.5 /100 WBC (0.0-0.2); Platelet Count 155 K/mm3 (150-400); RDW Coefficient Variation 14.4 % (11.7-14.2); RDW Standard Deviation 46.3 fL (35.1-46.3); Red Blood Cell Count 4.54 M/mm3 (3.80-5.20); White Blood Cell Count 8.69 K/mm3 (4.00-11.30)
[2020-06-01 11:54] LABS: Alanine Aminotransfer (ALT/SGP 53 U/L (12-78); Albumin, Blood 3.6 g/dL (3.4-5.0); Albumin/Globulin Ratio 0.8 (0.8-1.8); Alk Phos 99 U/L (50-136); Anion Gap 8 mmol/L (6-16); Aspartate Aminotrans (AST/SGOT 49 U/L (12-37); Bilirubin, Total 0.4 mg/dL (0.1-1.0); Blood Urea Nitrogen 18 mg/dL (8-24); Bun/Creatinine Ratio 21.8 (12.0-20.0); CO2, Blood 25 mmol/L (21-32); Calcium, Blood 9.2 mg/dL (8.5-10.1); Chloride, Blood 106 mmol/L (98-108); Creatinine, Blood 0.82 mg/dL (0.40-1.00); Globulin, Blood 4.6 g/dL (2.2-4.0); Glomerular Filtration Rate >60 (60-); Glucose, Blood 231 mg/dL (70-99); Potassium, Blood 4.5 mmol/L (3.5-5.5); Sodium, Blood 139 mmol/L (136-145); Total Protein, Blood 8.2 g/dL (6.4-8.2)
== END 2020-06-01 15:30 | disposition home or self-care (01) ==
LOC: ER 10:41
PROVIDERS: Emergency Medicine
DX: R20.2 Paresthesia of skin (principal); R53.1 Weakness; R40.4 Transient alteration of awareness; I10 Essential (primary) hypertension; E11.9 Type 2 diabetes mellitus without complications; E78.5 Hyperlipidemia, unspecified; Z91.041 Radiographic dye allergy status; Z88.2 Allergy status to sulfonamides; Z91.013 Allergy to seafood; Z86.69 Personal history of other diseases of the nervous system and sense organs; Z79.82 Long term (current) use of aspirin; Z79.4 Long term (current) use of insulin; Z79.899 Other long term (current) drug therapy
CPT/HCPCS: 36415; 70450; 70551; 80053; 85025; 93005; 93010; 96374; 99285-25; J2405

== ENCOUNTER → 2021-03-01 | Outpatient (CLI) | payer BC | END | disposition home or self-care (01) | LOC: LAB 16:33 → LAB SHORT 16:33 | DX: N39.0 Urinary tract infection, site not specified (principal) | CPT/HCPCS: 87077; 87086; 87186 ==

== ENCOUNTER → 2021-06-09 | Outpatient (CLI) | payer BC ==
[2021-06-09 15:40] LABS: Anion Gap 7 mmol/L (6-16); Blood Urea Nitrogen 16 mg/dL (8-24); Bun/Creatinine Ratio 21.7 (12.0-20.0); CO2, Blood 24 mmol/L (21-32); Calcium, Blood 9.2 mg/dL (8.5-10.1); Chloride, Blood 108 mmol/L (98-108); Creatinine, Blood 0.74 mg/dL (0.40-1.00); Glomerular Filtration Rate >60 (60-); Glucose, Blood 187 mg/dL (70-99); Potassium, Blood 3.8 mmol/L (3.5-5.5); Sodium, Blood 139 mmol/L (136-145)
== END ==
LOC: LAB SHORT 13:41
PROVIDERS: Nurse Practitioner
DX: E87.6 Hypokalemia (principal)
CPT/HCPCS: 36415; 80048

== ENCOUNTER → 2022-04-10 | Outpatient (CLI) | payer BC | LOC: LAB 14:30 → LAB SHORT 14:30 | DX: R10.9 Unspecified abdominal pain (principal) | CPT/HCPCS: 87338 ==

== ENCOUNTER 2022-05-22 18:45 | Emergency (ER) | payer SELFPAY ==
[~2022-05-22] VITALS: Ht 160 cm; Wt 108.9 kg
[2022-05-22 19:16] LABS: BASOPHILS PERCENT AUTO 0 % (0-2); EOSINOPHILS PERCENT AUTO 0 % (0-6); Hematocrit 40.6 % (33.0-51.0); Hemoglobin 14.1 g/dL (11.5-16.0); IMMATURE GRAN ABSOLUTE AUTO 0.01 K/mm3 (0.00-0.10); IMMATURE GRAN PERCENT AUTO 0 % (0-1); LYMPHOCYTES ABSOLUTE AUTO 1.09 K/mm3 (0.84-5.20); LYMPHOCYTES PERCENT AUTO 24 % (21-46); MONOCYTES ABSOLUTE AUTO 0.43 K/mm3 (0.16-1.47); MONOCYTES PERCENT AUTO 9 % (4-13); Mean Corpuscular HGB 28.3 pg (26.0-34.0); Mean Corpuscular HGB Conc 34.7 g/dL (31.5-36.5); Mean Corpuscular Volume 81 fL (80-100); Mean Platelet Volume 12.5 fL (9.1-12.4); NEUTROPHILS ABSOLUTE AUTO 3.09 K/mm3 (1.96-9.15); NEUTROPHILS PERCENT AUTO 67 % (41-73); Platelet Count 142 K/mm3 (150-400); RDW Coefficient Variation 12.8 % (11.7-14.2); RDW Standard Deviation 37.6 fL (35.1-46.3); Red Blood Cell Count 4.99 M/mm3 (3.80-5.20); White Blood Cell Count 4.62 K/mm3 (4.00-11.30)
[2022-05-22 19:38] LABS: Albumin, Blood 3.9 g/dL (3.4-5.0); Albumin/Globulin Ratio 0.9 (0.8-1.8); Bilirubin, Total 0.6 mg/dL (0.1-1.0); Bun/Creatinine Ratio 12.6 (12.0-20.0); Calcium, Blood 9.2 mg/dL (8.5-10.1); Creatinine, Blood 0.87 mg/dL (0.40-1.00); Globulin, Blood 4.2 g/dL (2.2-4.0); Potassium, Blood 3.2 mmol/L (3.5-5.5); Total Protein, Blood 8.1 g/dL (6.4-8.2)
[2022-05-22 20:48] LABS: Source, Urine Clean Catch
[2022-05-22 21:04] LABS: Appearance, Urine Clear (Clear); Bilirubin, Urine Neg (Neg); Blood, Urine Neg (Neg); Color, Urine Yellow (P-Yellow); Glucose Qualitative, Urine Neg (Neg); Ketones, Urine Neg (Neg); Leukocyte Esterase, Urine Neg (Neg); Nitrite, Urine Neg (Neg); Protein, Urine 1+ (Neg); Urobilinogen, Urine NORM (Normal)
[2022-05-22] MEDS ORDERED: METO10 PO (23:11)
[2022-05-22] MEDS ORDERED: ONDA4ODT MM (23:11)
== END 2022-05-22 23:19 | disposition home or self-care (01) ==
LOC: ER 18:45
PROVIDERS: Physician Assistant
DX: R11.2 Nausea with vomiting, unspecified (principal); R10.10 Upper abdominal pain, unspecified; Z88.2 Allergy status to sulfonamides; Z91.013 Allergy to seafood; Z79.899 Other long term (current) drug therapy; Z79.82 Long term (current) use of aspirin; Z79.4 Long term (current) use of insulin; I10 Essential (primary) hypertension; F43.10 Post-traumatic stress disorder, unspecified; E78.5 Hyperlipidemia, unspecified; G43.909 Migraine, unspecified, not intractable, without status migrainosus; E11.9 Type 2 diabetes mellitus without complications
CPT/HCPCS: 36415; 74177; 80053; 83690; 85025; 96374-59; 96375; 99284-25; A9270; J2270; J2765; Q9967

== ENCOUNTER 2022-10-02 14:43 | Emergency (ER) | payer BC, OTHER ==
[~2022-10-02] VITALS: Ht 160 cm; Wt 80.7 kg
[2022-10-02 14:55] VITALS: BP 132/86
[2022-10-02 15:48] LABS: BASOPHILS ABSOLUTE AUTO 0.02 K/mm3 (0.00-0.23); BASOPHILS PERCENT AUTO 0 % (0-2); EOSINOPHILS ABSOLUTE AUTO 0.06 K/mm3 (0.00-0.68); EOSINOPHILS PERCENT AUTO 1 % (0-6); Hematocrit 36.5 % (33.0-51.0); Hemoglobin 12.3 g/dL (11.5-16.0); IMMATURE GRAN ABSOLUTE AUTO 0.02 K/mm3 (0.00-0.10); IMMATURE GRAN PERCENT AUTO 0 % (0-1); LYMPHOCYTES ABSOLUTE AUTO 1.76 K/mm3 (0.84-5.20); LYMPHOCYTES PERCENT AUTO 24 % (21-46); MONOCYTES ABSOLUTE AUTO 0.58 K/mm3 (0.16-1.47); MONOCYTES PERCENT AUTO 8 % (4-13); Mean Corpuscular HGB Conc 33.7 g/dL (31.5-36.5); Mean Corpuscular Volume 86 fL (80-100); Mean Platelet Volume 12.8 fL (9.1-12.4); NEUTROPHILS ABSOLUTE AUTO 5.02 K/mm3 (1.96-9.15); NEUTROPHILS PERCENT AUTO 67 % (41-73); Platelet Count 172 K/mm3 (150-400); RDW Standard Deviation 40.9 fL (35.1-46.3); Red Blood Cell Count 4.24 M/mm3 (3.80-5.20); White Blood Cell Count 7.46 K/mm3 (4.00-11.30)
[2022-10-02 16:05] LABS: C-REACTIVE PROTEIN, EXT RANGE 18.1 mg/dL (0.000-0.300)
[2022-10-02 16:06] LABS: Albumin, Blood 3.7 g/dL (3.4-5.0); Albumin/Globulin Ratio 0.8 (0.8-1.8); Bilirubin, Total 0.5 mg/dL (0.1-1.0); Bun/Creatinine Ratio 23.9 (12.0-20.0); Calcium, Blood 9.3 mg/dL (8.5-10.1); Creatinine, Blood 0.71 mg/dL (0.40-1.00); Globulin, Blood 4.4 g/dL (2.2-4.0); Potassium, Blood 3.6 mmol/L (3.5-5.5); Total Protein, Blood 8.1 g/dL (6.4-8.2)
== END 2022-10-02 18:37 | disposition left against medical advice (07) ==
LOC: ER 14:43
PROVIDERS: Physician Assistant
DX: M79.89 Other specified soft tissue disorders (principal); Z53.21 Procedure and treatment not carried out due to patient leaving prior to being seen by health care provider; E78.5 Hyperlipidemia, unspecified; J45.909 Unspecified asthma, uncomplicated; Z88.2 Allergy status to sulfonamides; Z91.013 Allergy to seafood
CPT/HCPCS: 73562-RT; 80053; 85025; 86140; 99282-25

== ENCOUNTER → 2022-11-05 | Outpatient (CLI) | payer BC, OTHER | LOC: LAB SHORT 17:14 → LAB 17:14 | DX: E03.9 Hypothyroidism, unspecified (principal) | CPT/HCPCS: 84443 ==

== ENCOUNTER 2023-01-29 15:09 | Emergency (ER) | payer BC, OTHER ==
[~2023-01-29] VITALS: Ht 160 cm; Wt 74.4 kg
[2023-01-29] MEDS ORDERED: SUMA6I SC (15:19)
[2023-01-29] MEDS ORDERED: ATOR10 (15:20)
[2023-01-29] MEDS ORDERED: PREG50 (15:20)
[2023-01-29 16:53] LABS: U Amphetamine Screen Not Detected; U Barbituate Screen DETECTED; U Benzodiazapine Screen Not Detected; U Buprenorphine Screen Not Detected; U Cannabinoids Screen Not Detected; U Cocaine Screen Not Detected; U Methadone Screen Not Detected; U Methamphetamine Screen Not Detected; U Opiates Screen Not Detected; U Oxycodone Screen Not Detected; U Phencyclidine Screen Not Detected; U Propoxyphene Screen Not Detected
[2023-01-29 17:00] VITALS: BP 138/105
== END 2023-01-29 17:05 | disposition home or self-care (01) ==
LOC: ER 15:09
PROVIDERS: Student in an Organized Health Care Education/Training Program
DX: G43.909 Migraine, unspecified, not intractable, without status migrainosus (principal); I10 Essential (primary) hypertension; F31.9 Bipolar disorder, unspecified; J45.909 Unspecified asthma, uncomplicated; E11.9 Type 2 diabetes mellitus without complications; E78.5 Hyperlipidemia, unspecified; Z88.2 Allergy status to sulfonamides; Z91.013 Allergy to seafood; Z79.899 Other long term (current) drug therapy
CPT/HCPCS: 70450; 96361; 96374; 96375; 99284-25; J0780; J1200; J7030

== ENCOUNTER 2023-09-16 09:29 | Day surgery (SDC) | payer BC, OTHER ==
[~2023-09-16] VITALS: Ht 160 cm; Wt 85.2 kg
[~2023-09-16 09:29] MED LIST changes: +ATOR10; +BUTONI; +HYDHCL25 PO; +LIOT5 PO; +NURTEC ODT75 MG PO; +PANT20 PO; +PREG50; +TIZANIDINE HCL2 MG PO
[2023-09-16] MEDS ORDERED: CeFAZolin Sodium 2,000 MG VIAL ONE (09:38)
[2023-09-16] MEDS ORDERED: Lactated Ringer's 1,000 ML IV ONE ×2 (09:38→10:16)
[2023-09-16] MEDS ORDERED: CENTRUM SILVER1 EAC2 PO (09:53)
[2023-09-16] MEDS ORDERED: FAMO10 PO (09:53)
[2023-09-16] MEDS ORDERED: ONDA4ODT (09:54)
[2023-09-16] MEDS ORDERED: PREGABALIN75 MG PO (09:55)
[2023-09-16] MEDS ORDERED: Venlafaxine HC225 MG PO (09:56)
[2023-09-16] MEDS ORDERED: CETI5 PO (09:56)
[2023-09-16] MEDS ORDERED: propofoL 20 ML IV ONE (10:55)
[2023-09-16] MEDS ORDERED: Ketorolac Tromethamine 30mg Vial ONE (10:55)
[2023-09-16] MEDS ORDERED: Dexamethasone Sod Phos 10 MG/ML 1ML VIAL ONE (10:55)
[2023-09-16] MEDS ORDERED: FentaNYL Citrate 50 MCG/ML 2 ML Injection ONE ×2 (10:55→11:59)
[2023-09-16] MEDS ORDERED: Ondansetron HCl 2 MG / ML 2ML Vial ONE (10:55)
--- NOTE | 2023-09-16 10:59 | NUR ---
09/16/23 1059 Celia PonceFRIENAdele AT BEDSIDE TO
--- NOTE | 2023-09-16 11:14 | NUR ---
09/16/23 1115 SEB BEE CHILD COMES OUT CRYING AND FIGHTING STAFF. STARTING TO CALM DOWN A LITTLE. SUCTION DONE, MINIMAL DRAINAGE. ZOFRAN GIVEN FOR NAUSEA. 2MG IV PUSH /SLOW.
[2023-09-16] MEDS ORDERED: Ropivacaine 0.5% HCl/Pf 5 MG/ML 20ML VIAL INJ ONE (11:18)
[2023-09-16] MEDS ORDERED: EPINEPhrine HCl 1 MG/ML 1ML Amp XX ONE (11:18)
--- NOTE | 2023-09-16 11:26 | NUR ---
09/16/23 1126 Raisa Kerr ROPIVACAINE 0.5% 10 ML MIXED & VERIFIED W/ EPI 0.05ML (1MG/ML) TO MAKE ROPIVACAINE 0.5% 1:200,000 FOR INJECTION AT [facility]. ALL 10 ML INJECTED.
[2023-09-16] MEDS ORDERED: HYDROmorphone HCl/Pf 1MG SYR ONE (12:30)
[2023-09-16] MEDS ORDERED: HYDROcodone 5-APAP 325 TAB ONE (12:40)
[2023-09-16 13:01] VITALS: BP 122/79
--- NOTE | 2023-09-16 13:03 | NUR ---
09/16/23 4745 PAVAN VELASQUEZ PT REFUSED CROW HOSE DUE TO NEUROPATHY OF FEET.
== END 2023-09-16 13:15 | disposition home or self-care (01) ==
LOC: ORSCSDS 09:29
PROVIDERS: Orthopaedic Surgery
PROC: 01N40ZZ Release Ulnar Nerve, Open Approach (ICD-10-PCS; principal; 2023-09-16 11:40)
DX: G56.22 Lesion of ulnar nerve, left upper limb (principal); I10 Essential (primary) hypertension; E11.9 Type 2 diabetes mellitus without complications; E03.9 Hypothyroidism, unspecified; J45.909 Unspecified asthma, uncomplicated; Z79.899 Other long term (current) drug therapy
CPT/HCPCS: 82947; A9270; J0171; J0690; J1100; J1170; J1885; J2405; J2704; J2795; J3010; J7120